=== PATIENT | female | born 1955 | race Caucasian/White ===

== ENCOUNTER 2020-05-23 10:37 | Outpatient (CLI) | payer MEDICARE ==
--- NOTE | 2020-05-23 14:18 | DEXA Report ---
Reason: POST MENOPAUSAL Procedure Date: 05/23/2020 Accession Number: [id number] / [id number] Procedure: DEX - Dexa Spine and/or Hip CPT Code: Final Report FULL RESULT: PROCEDURE: Dexa Spine and/or Hip INDICATIONS: POST MENOPAUSAL TECHNIQUE: Dual energy x-ray absorptiometry (DXA) was performed on a [employer] System. Regions measured are the AP Spine, femoral neck, and if needed forearm. COMPARISON: None. FINDINGS: Lumbar Spine: Bone Mineral Density 1.33 g/cm/cm,T score 1.7, normal Left Hip: Bone Mineral Density 1.250 g/cm/cm,T score 1.9, normal Left Femoral Neck: Bone Mineral Density 1.186 g/cm/cm, T score 1.1, normal (T score greater or equal to -1.0: NORMAL) (T score from -1.1 to -2.4: OSTEOPENIA) (T score less than or equal to -2.5 to: OSTEOPOROSIS) Impression: Normal bone density. Patients with diagnosis of osteoporosis or osteopenia should have regular bone mineral density assessment. For those eligible for Medicare, routine testing is allowed once every 2 years. Testing frequency can be increased for patients who have rapidly progressing disease or for those who are receiving medical therapy to restore bone mass. Reviewed by: Angella Tompkins MD on 05/23/2020 2:17 PM PDT Approved by: Angella Tompkins MD on 05/23/2020 2:17 PM PDT Station ID: [id number]
[2020-05-24 15:39] LABS: HEPATITIS C ANTIBODY NON-REACTIVE (NON-REACTIVE)
== END 2020-05-23 10:38 | disposition home or self-care (01) ==
LOC: DI 10:37
PROVIDERS: ATTEND Physician Assistant
DX: Z78.0 Asymptomatic menopausal state (principal); Z11.59 Encounter for screening for other viral diseases
CPT/HCPCS: 36415; 77080; 86803

== ENCOUNTER 2020-06-04 12:41 | Outpatient (CLI) | payer MEDICARE | END 2020-06-04 12:42 | disposition home or self-care (01) | LOC: COV 12:41 | PROVIDERS: ATTEND Family Medicine | DX: R05 Cough (principal); R06.02 Shortness of breath; R53.83 Other fatigue; R09.81 Nasal congestion; Z20.828 Contact with and (suspected) exposure to other viral communicable diseases ==

== ENCOUNTER 2024-05-24 15:36 | Outpatient (CLI) | payer MEDICARE ==
--- NOTE | 2024-05-24 17:33 | XRAY Report ---
PROCEDURE: Hip w/Pelvis 2-3V LT INDICATIONS: LEFT HIP AND THIGH PAIN TECHNIQUE: 2 views of the hip were acquired. COMPARISON: None. FINDINGS: Bones: No fractures or dislocations. No suspicious bony lesions. Dystrophic calcification adjacen t to the left greater tuberosity. Soft tissues: No suspicious soft tissue calcifications or masses. IMPRESSION: No acute bony abnormality. Enthesopathy or calcific tendinitis adjacent to the left greater trochanter. Reviewed by: Lashell Rodriguez MD on 05/24/2024 5:31 PM PDT Approved by: Lashell Rodriguez MD on 05/24/2024 5:31 PM PDT Station ID: [id number]
== END 2024-05-24 15:37 | disposition home or self-care (01) ==
LOC: DI.S 15:36
PROVIDERS: ATTEND Physical Medicine & Rehabilitation
DX: M25.552 Pain in left hip (principal); G89.29 Other chronic pain